=== PATIENT | male | born 1995 | race Two or more races ===

== ENCOUNTER 2016-11-22 12:36 | Emergency (ER) | payer OTHER ==
[2016-11-22 13:17] LABS: BASOPHILS % (AUTO) 0.5 %; EOSINOPHILS # (AUTO) 0.2 10^3/uL (0.0-0.7); EOSINOPHILS % (AUTO) 2.6 %; HCT - HEMATOCRIT 44.1 % (42.0-52.0); HGB - HEMOGLOBIN 15.2 g/dL (14.0-18.0); LYMPHOCYTES # (AUTO) 1.4 10^3/uL (1.5-3.5); LYMPHOCYTES % (AUTO) 24.5 %; MEAN CORPUSCULAR HEMOGLOBIN 30.2 pg (27.0-31.0); MEAN CORPUSCULAR HGB CONC 34.4 g/dL (32.0-36.0); MEAN CORPUSCULAR VOLUME 87.6 fL (80.0-94.0); MEAN PLATELET VOLUME 7.6 fL (7.4-11.4); MONOCYTES # (AUTO) 0.8 10^3/uL (0.0-1.0); MONOCYTES % (AUTO) 13.6 %; NEUTROPHILS # (AUTO) 3.5 10^3/uL (1.5-6.6); NEUTROPHILS % (AUTO) 58.8 %; RED BLOOD COUNT 5.03 10^6/uL (4.70-6.10); RED CELL DISTRIBUTION WIDTH 12.4 % (12.0-15.0); UNCORRECTED WHITE BLOOD COUNT 5.9 x10^3/uL; WHITE BLOOD COUNT 5.9 x10^3/uL (4.8-10.8)
[2016-11-22 13:33] LABS: ALBUMIN/GLOBULIN RATIO 1.6 (1.0-2.2); BILIRUBIN,TOTAL 0.6 mg/dL (0.2-1.0); POTASSIUM 3.6 mmol/L (3.5-5.0); TOTAL PROTEIN 7.4 g/dL (6.7-8.2)
--- NOTE | 2016-11-22 14:48 | CT Preliminary Report ---
Exam: CT Chest Angio (PE) Impression: No evidence of a pulmonary embolus. Low-density lesion within the pancreas may represent a mass or cyst without evidence of pancreatic du ct dilatation. Recommend dedicated CT of the pancreas or biopsy for further evaluation. [facility] SITE ID: [id number]
--- NOTE | 2016-11-22 14:51 | CT Report ---
EXAM: CT ANGIOGRAM CHEST EXAM DATE: 11/22/2016 01:53 PM. CLINICAL HISTORY: SOA. COMPARISON: None. TECHNIQUE: Routine helical imaging was performed through the chest in the pulmonary arterial phase. I V Contrast: 100 cc of Isovue-300. Reconstructions: Coronal 3-D MIP reconstructions.Sagittal and coron al. In accordance with CT protocol optimization, one or more of the following dose reduction techniques w ere utilized for this exam: automated exposure control, adjustment of mA and/or KV based on patient s ize, or use of iterative reconstructive technique. FINDINGS: There is adequate opacification of the pulmonary arteries. There is no filling defect to suggest the presence of a pulmonary embolus. There is no pulmonary mass, infiltrate, pleural effusion or pneumothorax seen. No mediastinal mass is identified. The visualized upper abdominal organs are without evidence of enhancing mass. There a low-density les ion within the body of the pancreas. It measures 2.1 x 3.3 cm (image 140 of series 4). There is no pa ncreatic duct dilatation. No focal bony lesion is identified. Impression: No evidence of a pulmonary embolus. Low-density lesion within the pancreas may represent a mass or cyst without evidence of pancreatic du ct dilatation. Recommend dedicated CT of the pancreas or biopsy for further evaluation. [facility] Referring Provider Line: [phone] SITE ID: [id number]
[2016-11-22 15:05] VITALS: BP 123/68
[2016-11-22] MEDS ORDERED: IPRATROPIUM/ALBUTEROL 3 ML NEB INH STA (15:13)
--- NOTE | 2016-11-22 15:21 | ED Physician Documentation ---
PD HPI DYSPNEA - Stated complaint Stated Complaint: SOA - Chief complaint Chief Complaint: General - History obtained from History obtained from: Patient - History of Present Illness Timing - onset: Today Timing - onset during: Light activity Timing - duration: Hours Timing - details: Abrupt onset, Still present Inciting event(s): Other (none) Improved by: Rest Worsened by: Exertion Associated symptoms: No: Fever, Cough, Hemoptysis, Wheezing, Chest pain / discomfort, Palpitations, Diaphoresis, Bilateral edema, Unilateral edema, Anxiety Similar symptoms before: Has not had sx before Recently seen: Not recently seen - Additional information Additional information: 21 y/o male with No past medical history developed some acute shortness of breath this morning. He describes it as a feeling of not been able to get a full deep breath and when this persisted he eventually went to his command and was told to come to the emergency department for evaluation. He does not have any chest pain he does feel is hard to get a full deep breath and he has not had wheezing cough or congestion. 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 He denies any pain in his legs he denies any swelling in his legs he denies any chest pain. Review of Systems Constitutional: denies: Fever, Chills Eyes: denies: Decreased vision Ears: denies: Ear pain Nose: denies: Rhinorrhea / runny nose, Congestion Throat: denies: Sore throat Cardiac: denies: Chest pain / pressure, Palpitations Respiratory: reports: Dyspnea. denies: Cough, Wheezing GI: denies: Abdominal Pain, Nausea, Vomiting : denies: Dysuria, Frequency Skin: denies: Rash Musculoskeletal: denies: Neck pain, Back pain, Extremity pain Neurologic: denies: Generalized weakness, Focal weakness, Numbness PD PAST MEDICAL HISTORY - Past Medical History Past Medical History: No - Past Surgical History Past Surgical History: No - Present Medications Home Medications: Ambulatory Orders Medication Instructions Recorded Confirmed No Known Home Medications [No 11/22/16 11/22/16 Known Home Medications] - Allergies Allergies/Adverse Reactions: Allergies Allergy/AdvReac Type Severity Reaction Status Date / Time No Known Drug Allergies Allergy Verified 11/22/16 12:45 - Social History Does the pt smoke?: Yes Smoking Status: Current every day smoker Does the pt drink ETOH?: Yes Does the pt have substance abuse?: No - Immunizations Immunizations are current?: Yes PD ED PE NORMAL - Vitals Vital signs reviewed: Yes (Hypertensive mild) - General General: No acute distress, Well developed/nourished - HEENT HEENT: Atraumatic, PERRL, EOMI, Ears normal, Moist mucous membranes, Pharynx benign, Dentition benign - Neck Neck: Supple, no meningeal sign, No bony TTP - Cardiac Cardiac: RRR, No murmur - Respiratory Respiratory: No respiratory distress, Clear bilaterally - Abdomen Abdomen: Soft, Non tender - Back Back: No CVA TTP, No spinal TTP - Derm Derm: Normal color, Warm and dry, No rash - Extremities Extremities: No deformity, No tenderness to palpate, Normal ROM s pain, No edema , No calf tenderness / cord - Neuro Neuro: No motor deficit, No sensory deficit - Psych Psych: Normal mood, Normal affect Results - Vitals Vitals: Vital Signs - 24 hr 11/22/16 11/22/16 11/22/16 12:43 13:11 14:08 Temperature 36.3 C L Heart Rate 60 59 L 63 Respiratory 17 18 17 Rate Blood Pressure 135/73 H 131/63 H 119/63 O2 Saturation 100 99 99 11/22/16 11/22/16 15:04 15:31 Temperature Heart Rate 76 70 Respiratory 17 18 Rate Blood Pressure 123/68 O2 Saturation 99 Oxygen O2 Source Room air - EKG (time done) 1315 Rate: Rate (enter#) (61) Rhythm: NSR Ischemia: Normal ST segments Compare to prior EKG: Old EKG unavailable Computer interpretation: Agree with computer - Labs Labs: Laboratory Tests 11/22/16 11/22/16 11/22/16 13:05 13:05 13:05 WBC 5.9 RBC 5.03 Hgb 15.2 Hct 44.1 MCV 87.6 MCH 30.2 MCHC 34.4 RDW 12.4 Plt Count 222 MPV 7.6 Neut # 3.5 Lymph # 1.4 L [place] # 0.8 Eos # 0.2 Baso # 0.0 Absolute Nucleated RBC 0.00 Nucleated RBCs 0.0 D-Dimer Sodium 135 Potassium 3.6 Chloride 100 L Carbon Dioxide 25 Anion Gap 10.0 BUN 15 Creatinine 1.0 Estimated GFR (MDRD) 93 Glucose 93 Calcium 9.0 Total Bilirubin 0.6 AST 39 ALT 29 Alkaline Phosphatase 48 Troponin I < 0.04 Total Protein 7.4 Albumin 4.6 Globulin 2.8 Albumin/Globulin Ratio 1.6 Lipase 18 L 11/22/16 13:05 WBC RBC Hgb Hct MCV MCH MCHC RDW Plt Count MPV Neut # Lymph # [place] # Eos # Baso # Absolute Nucleated RBC Nucleated RBCs D-Dimer < 200.0 L Sodium Potassium Chloride Carbon Dioxide Anion Gap BUN Creatinine Estimated GFR (MDRD) Glucose Calcium Total Bilirubin AST ALT Alkaline Phosphatase Troponin I Total Protein Albumin Globulin Albumin/Globulin Ratio Lipase - Rads (name of study) CT angiogram chest Radiology: Prelim report reviewed (Impression: No evidence of pulmonary embolus. Low-density lesion within the pancreas may represent a mass or cyst without evidence of pancreatic duct dilation. Recommend dedicated CT of the pancreas or biopsy for further evaluation.) PD MEDICAL DECISION MAKING - ED course Complexity details: reviewed results, re-evaluated patient, considered differential, d/w patient, d/w family ED course: 21-year-old male with no prior history comes to the emergency department with a chief complaint of shortness of breath. He does not have wheezing on exam he is moving fair air and he appears short of breath. He relates a history of exertional dyspnea and instability. My initial concern was for pulmonary embolism and we did obtain a pulmonary angiogram. This was negative for evidence of pulmonary embolism and negative for any evidence of disease in the chest. There was an incidental finding of a pancreatic cyst that will require outpatient follow-up. Here in the emergency department I was not able to discern a specific reason for the patient's shortness of breath we did try a DuoNeb treatment and this did not improve the patient's symptoms. He felt satisfied at the conclusion of the visit that there was no serious pathology involved and what I have recommended is that he follow-up with his primary in the coming week for reevaluation and if there is a declaration of illness this will further develop. Departure - Departure Disposition: 01 Home, Self Care Clinical Impression: Dyspnea Qualifiers: Dyspnea type: unspecified Qualified Code(s): R06.00 - Dyspnea, unspecified Condition: Stable Instructions: ED Dyspnea Shortness of Breath Follow-Up: HARPER Mcdonald [Provider Group] Comments: Today in the emergency department we were not able to discern a reason for your acute shortness of breath. There was an incidental finding on the CT angiogram of your chest that will require outpatient follow-up. Follow-up with your primary care provider for a referral for a dedicated CT of your pancreas.
[2016-11-22] MEDS ORDERED: IPRATROPIUM/ALBUTEROL 3 ML NEB INH ONE (15:30)
== END 2016-11-22 16:44 | disposition home or self-care (01) ==
LOC: ED 12:36
DX: R06.02 Shortness of breath (principal); F17.200 Nicotine dependence, unspecified, uncomplicated
CPT/HCPCS: 36415; 71275; 80053; 83690; 84484; 85025; 85379; 93005; 94664; 99284; J7620

== ENCOUNTER 2017-03-21 09:31 | Outpatient (CLI) | payer OTHER ==
[~2017-03-21 09:31] MED LIST: GADOBUTROL 7.5 MMOL/7.5 ML VIAL IVP ONE
[2017-03-21] MEDS ORDERED: GADOBUTROL 7.5 MMOL/7.5 ML VIAL ONE (09:47)
--- NOTE | 2017-03-21 16:01 | MRI Report ---
EXAM: MR ABDOMEN WITH AND WITHOUT CONTRAST (MR PANCREAS AND MRCP) EXAM DATE: 03/21/2017 10:00 AM. CLINICAL HISTORY: Pancreatic mass. COMPARISON: CT chest from 11/22/2016. TECHNIQUE: Multiplanar breath-hold T1, T2, and DWI sequences obtained through the pancreas and abdome n on an MR scanner. Dedicated 2D and 3D MRCP sequences obtained through the biliary and pancreatic du cts. Images obtained before and after administration of 7.5 mL Gadavist intravenous contrast. Multiph ase postcontrast sequences obtained through the pancreas. FINDINGS: Lung Bases: Lung bases are clear. Included portions of the heart are unremarkable. Liver: Homogeneous signal intensity. No hepatic lesions are identified. Patent portal vein and hepati c veins. CBD: The CBD appears normal and measures 2 mm in diameter. Gallbladder: The gallbladder is partially distended and appears normal with no wall thickening or sto ne. Pancreas: Along the posterior pancreatic body nearly at the junction with pancreas tail is a T2 hyper intense and T1 hypointense cystic lesion measuring approximately 2.9 x 2.9 x 2.1 cm, which is unchang ed compared to 11/22/2016. No thick irregular septations are noted. There appears to be just a single cystic component to the lesion which is just adjacent to the pancreatic duct which measures approxim ately 1 mm particularly along its posterior and inferior aspect and may communicate with the duct. Mu ltiple septations are not seen within the lesion. No nodules are identified within the lesion . No en hancing septations. The pancreatic duct measures 1 mm in diameter and appears normal with no stone or stricture. Spleen: The spleen appears normal. Kidneys and Adrenals: The kidneys appear normal with no mass or hydronephrosis. There are no cysts in the kidneys. The adrenals appear normal. Bowel: Stomach is mildly distended unremarkable small bowel is unremarkable were visualized as well a s the colon. No evidence for bowel obstruction. No large mesenteric lymph nodes are identified. Retroperitoneum: Abdominal aorta and IVC are of normal caliber. No retroperitoneal adenopathy. No pe ripancreatic adenopathy. No osseous abnormalities. IMPRESSION: 1. 2.9 x 2.9 x 2.1 cm cystic pancreatic lesion in the pancreatic body/tail adjacent to the pancreatic duct and may communicate with the duct. Multiple cysts or septations are not seen within the lesion. No enhancing nodules or septations are identified. Therefore, the lesion may represent a pancreatic cyst/pseudocyst versus possibly IPMT. Size and appearance are stable compared to 11/22/2016 CT. Follo w-up is recommended in 6 months with MRI to assess stability based on ACR guidelines. 2. No peripancreatic or retroperitoneal adenopathy. [facility] Referring Provider Line: [phone] SITE ID: [id number]
== END 2017-03-21 09:32 | disposition home or self-care (01) ==
LOC: DI 09:31
PROVIDERS: ATTEND Surgery
DX: K86.89 Other specified diseases of pancreas (principal)
CPT/HCPCS: 74183; A9585